=== PATIENT | male | born 1980 | race Caucasian/White ===

== ENCOUNTER 2020-10-12 21:01 | Inpatient (IN) | payer SELFPAY ==
[2020-10-12 21:48] LABS: Basophils % (Auto) 0.2 % (0.0-1.8); Eosinophils % (Auto) 0.2 % (0.0-4.3); Hematocrit 43.6 % (35.5-45.6); Hemoglobin 15.3 gm/dl (11.8-15.2); Lymphocytes % (Auto) 6.1 % (13.4-35.0); Mean Corpuscular HGB Conc 35 % (32-34); Mean Corpuscular Volume 84 fl (84-94); Monocytes # (Auto) 0.8 K/mm3 (0.0-0.8); Monocytes % (Auto) 4.7 % (0.0-7.3); Platelet Count 229 K/mm3 (140-440); Red Blood Count 5.19 M/mm3 (3.65-5.03); Red Cell Distribution Width 13.3 % (13.2-15.2)
[2020-10-12 22:03] LABS: Alanine Aminotransferase 23 units/L (7-56); Albumin 4.4 g/dL (3.9-5); Blood Urea Nitrogen 17 mg/dL (9-20); Calcium 8.9 mg/dL (8.4-10.2); Hemolysis Index 10
[2020-10-12 22:15] LABS: BUN/Creatinine Ratio 24
[2020-10-12] MEDS ORDERED: FAMOTIDINE 20 MG/2 ML INJ IV ONE (22:30)
[2020-10-12] MEDS ORDERED: SODIUM CHLORIDE 0.9% 1000 ML 1,000 ML IV ONE (22:30)
[2020-10-12] MEDS ORDERED: MORPHINE 4 MG/1 ML INJ IV ONE (22:30)
[2020-10-12] MEDS ORDERED: ONDANSETRON 4 MG/2 ML INJ IV ONE (22:30)
--- NOTE | 2020-10-12 23:25 | Cat Scan Report ---
CT ABDOMEN AND PELVIS WITH CONTRAST INDICATION: Abdominal pain CONTRAST: 100 cc Omnipaque 300 IV COMPARISON: None available. All CT scans at this location are performed using CT dose reduction for ALARA by means of automated e xposure control. FINDINGS: A tiny noncalcified nodule versus scar posterior laterally in the left lower lobe measuring 3 mm is of clinical significance. Lung bases otherwise are clear. No pneumoperitoneum is seen. Gallbladder and bile ducts appear within normal limits. No masses are se en. No urinary obstructive changes are noted. No evidence of bowel obstruction is seen. Appearance of portions of the descending and sigmoid colon probably relates to lack of distention. High density ma terial is seen in the right colon as could be seen with some laxatives. What appears to be the appendix is dilated to 11 mm. I do not see significant wall thickening. No def inite inflammation is seen in the fat around the appendix or the appendix itself. No appendicolith is identified. At the base of the cecum at the junction with the appendix there is a question of a 16 m m soft tissue lobular mass. Possibly this is stool but it is outlined by material in the colon and castillo s a concerning appearance. Terminal ileum is best seen on coronal images and appears within normal li mits. IMPRESSION: Apparent dilated appendix though without definite wall thickening or inflammation. I conc erned that there is a mass in the cecum at the appendiceal junction and this could be a mucocele of t he appendix related to obstructive change from a mass lesion. I favor this over acute appendicitis an d see no inflammatory change in this area. No evidence of bowel obstruction is noted. No perforation or abscess is seen. Signer Name: Yonas Chaudhry MD Signed: 10/12/2020 11:20 PM Workstation Name: [id number]
[2020-10-12] MEDS ORDERED: PIPERACIL/TAZOBACTA 4.5/NS 100 4.5 GM/100 ML VIAL IV ONE (23:58)
[2020-10-12] MEDS ORDERED: HYDROmorphone 1 MG/1 ML INJ IV ONE (23:58)
[2020-10-13 00:02] LABS: Bilirubin,Urine NEG (Negative); Blood,Urine NEG (Negative); Color,Urine Yellow (Yellow); Mucus,Urine FEW /HPF; Protein,Urine <15 mg/dL mg/dL (Negative)
--- NOTE | 2020-10-13 00:12 | Emergency Department Report ---
ED Abdominal Pain HPI - General Chief Complaint: Abdominal Pain Stated Complaint: ABDOMINAL PAIN Time Seen by Provider: 10/12/20 23:45 Source: patient Mode of arrival: Ambulatory Limitations: No Limitations - History of Present Illness Initial Comments: cc: abdominal pain HPI: This is a healthy 39-year-old male without significant past medical history presents with right lower quadrant abdominal pain. Pain began at the navel. Pain then moved to the right lower quadrant of the past day. He has poor appetite. He also has nausea vomiting. He denies fever chills. No history of surgery. Pain is worse with inspiration and movement. Pain is sharp in nature. 10 out of 10. Pain did improve with morphine provided in the emergency department. 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 MD Complaint: abdominal pain -: Gradual, days(s) (1 day) Location: periumbilical, RLQ Radiation: none Migration to: no migration Severity scale (0 -10): 10 Quality: sharp Consistency: constant Improves With: other (still position) Worsens With: movement Associated Symptoms: nausea, vomiting - Related Data Allergies Allergy/AdvReac Type Severity Reaction Status Date / Time No Known Allergies Allergy Verified 10/12/20 22:32 ED Review of Systems ROS: Stated complaint: ABDOMINAL PAIN Other details as noted in HPI Comment: All other systems reviewed and negative Constitutional: denies: chills, fever, malaise Respiratory: denies: cough, shortness of breath Gastrointestinal: abdominal pain, nausea, vomiting ED Past Medical Hx - Past Medical History Previous Medical History?: No - Surgical History Past Surgical History?: No - Social History Smoking Status: Never Smoker Substance Use Type: None ED Physical Exam - General Limitations: No Limitations General appearance: alert, in no apparent distress, other (Nontoxic but in severe pain) - Head Head exam: Present: atraumatic, normocephalic - Eye Eye exam: Present: normal appearance - ENT ENT exam: Present: mucous membranes moist - Neck Neck exam: Present: normal inspection, full ROM - Respiratory Respiratory exam: Present: normal lung sounds bilaterally. Absent: respiratory distress, wheezes, rales, rhonchi - Cardiovascular Cardiovascular Exam: Present: regular rate, normal rhythm, normal heart sounds. Absent: systolic murmur, diastolic murmur, rubs, gallop - GI/Abdominal GI/Abdominal exam: Present: soft, tenderness, guarding, rebound. Absent: distended - Rectal Rectal exam: Present: deferred - Extremities Exam Extremities exam: Present: normal inspection - Back Exam Back exam: Present: normal inspection - Neurological Exam Neurological exam: Present: alert, oriented X3 - Psychiatric Psychiatric exam: Present: normal affect, normal mood - Skin Skin exam: Present: warm, dry, intact, pallor. Absent: rash ED Course Vital Signs 10/12/20 21:25 Temperature 98.7 F Pulse Rate 62 Respiratory 16 Rate Blood Pressure 125/62 [Left] O2 Sat by Pulse 99 Oximetry ED Medical Decision Making - Lab Data Result diagrams: 10/12/20 21:41 10/12/20 21:41 Laboratory Results - last 24 hr 10/12/20 10/12/20 10/12/20 21:41 21:41 21:41 WBC 16.2 H RBC 5.19 H Hgb 15.3 H Hct 43.6 MCV 84 MCH 30 MCHC 35 H RDW 13.3 Plt Count 229 Lymph % (Auto) 6.1 L [place] % (Auto) 4.7 Eos % (Auto) 0.2 Baso % (Auto) 0.2 Lymph # (Auto) 1.0 L [place] # (Auto) 0.8 Eos # (Auto) 0.0 Baso # (Auto) 0.0 Seg Neutrophils % 88.8 H Seg Neutrophils # 14.4 H Sodium 137 Potassium 4.0 Chloride 100.0 Carbon Dioxide 24 Anion Gap 17 BUN 17 Creatinine 0.7 L Estimated GFR > 60 BUN/Creatinine Ratio 24 Glucose 135 H Calcium 8.9 Total Bilirubin 0.80 AST 27 ALT 23 Alkaline Phosphatase 86 Total Protein 8.2 Albumin 4.4 Albumin/Globulin Ratio 1.2 Lipase 22 Urine Color Urine Turbidity Urine pH Ur Specific [place] Urine Protein Urine Glucose (UA) Urine Ketones Urine Blood Urine Nitrite Urine Bilirubin Urine Urobilinogen Ur Leukocyte Esterase Urine WBC (Auto) Urine RBC (Auto) Urine Mucus 10/12/20 Unknown WBC RBC Hgb Hct MCV MCH MCHC RDW Plt Count Lymph % (Auto) [place] % (Auto) Eos % (Auto) Baso % (Auto) Lymph # (Auto) [place] # (Auto) Eos # (Auto) Baso # (Auto) Seg Neutrophils % Seg Neutrophils # Sodium Potassium Chloride Carbon Dioxide Anion Gap BUN Creatinine Estimated GFR BUN/Creatinine Ratio Glucose Calcium Total Bilirubin AST ALT Alkaline Phosphatase Total Protein Albumin Albumin/Globulin Ratio Lipase Urine Color Yellow Urine Turbidity Clear Urine pH 7.0 Ur Specific [place] 1.036 H Urine Protein <15 mg/dl Urine Glucose (UA) Neg Urine Ketones 80 Urine Blood Neg Urine Nitrite Neg Urine Bilirubin Neg Urine Urobilinogen 2.0 Ur Leukocyte Esterase Neg Urine WBC (Auto) 1.0 Urine RBC (Auto) 4.0 Urine Mucus Few - Radiology Data Radiology results: report reviewed Patient Name: JENNIFER CONCEPCION Gender: Male Date of : 1980 Home Phone: Referring Provider: KIM BANKS Organization: [facility] Accession Number: [id number] Requested Date: October 12, 2020 21:33 Report Status: Final Requested Procedure: 1 Procedure Description: CT abdomen pelvis w con Modality: CT Findings Reporting MD: Yonas Chaudhry Dictation Time: October 12, 2020 22:20 Marketing Development 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 All CT scans at this location are performed using CT dose reduction for Ingeniatrics by means of automated exposure control. FINDINGS: A tiny noncalcified nodule versus scar posterior laterally in the left lower lobe measuring 3 mm is of clinical significance. Lung bases otherwise are clear. No pneumoperitoneum is seen. Gallbladder and bile ducts appear within normal limits. No masses are seen. No urinary obstructive changes are noted. No evidence of bowel obstruction is seen. Appearance of portions of the descending and sigmoid colon probably relates to lack of distention. High density material is seen in the right colon as could be seen with some laxatives. What appears to be the appendix is dilated to 11 mm. I do not see significant wall thickening. No definite inflammation is seen in the fat around the appendix or the appendix itself. No appendicolith is iden tified. At the base of the cecum at the junction with the appendix there is a question of a 16 mm soft tissue lobular mass. Possibly this is stool but it is outlined by material in the colon and has a concerning appearance. Terminal ileum is best seen on coronal images and appears within normal limits. IMPRESSION: Apparent dilated appendix though without definite wall thickening or inflammation. I concerned that there is a mass in the cecum at the appendiceal junction and this could be a mucocele of the appendix related to obstructive change from a mass lesion. I favor this over acute appendicitis and see no inflammatory change in this area. No evidence of bowel obstruction is noted. No perforation or abscess is seen. Signer Name: Yonas Chaudhry MD Signed: 10/12/2020 10:20 PM Workstation Name: [id number] - Medical Decision Making 1. Acute appendicitis: Patient has elevated white count on CBC as well as convincing abdominal exam. Clinically patient presents with signs and symptoms of appendicitis. IV Zosyn, IV analgesia, IV antibiotics, n.p.o. status and IV fluid therapy initiated emergency department. 2. Possible cecal mass: Cecal mass at the appendiceal junction is suspected according to radiology impression. Appendix is dilated on CT scan however there is no associated inflammatory changes. I have made general surgeon Dr. De aware of these findings. He will make further treatment recommendations after evaluating the patient [id number]. Patient is admitted to the hospital service in stable condition. Critical care attestation.: If time is entered above; I have spent that time in minutes in the direct care of this critically ill patient, excluding procedure time. ED Disposition Clinical Impression: Acute appendicitis, Cecum mass Disposition: [id number] OP ADMIT IP TO THIS HOSP Is pt being admited?: Yes Does the pt Need Aspirin: No Condition: Stable
[2020-10-13] MEDS ORDERED: ALBUTEROL 2.5 MG/3 ML NEBU IH PRN (00:41)
[2020-10-13] MEDS ORDERED: ACETAMINOPHEN 325 MG TAB PO PRN (00:41)
[2020-10-13] MEDS ORDERED: ONDANSETRON 4 MG/2 ML INJ IV PRN ×2 (00:41→13:10)
[2020-10-13] MEDS ORDERED: hydrALAZINE 20 MG/1 ML INJ IV PRN (00:42)
--- NOTE | 2020-10-13 00:47 | History and Physical Report ---
History of Present Illness Date of examination: 10/13/20 Date of admission: 10/13/20 Chief complaint: Abdominal pain History of present illness: 39-year-old male without significant past medical history presents with right lower quadrant abdominal pain 10/10 started at [place] radiating towards the right lower quadrant for 1 day. he has poor appetite. He also has nausea vomiting. He denies fever chills. No history of surgery. Pain is worse with inspiration and movement. Pain is sharp in nature. Pain did improve with morphine provided in the emergency department. CT scan of the abdomen showed apparent dilated appendix though without definite wall thickening or inflammation. I concerned that there is a mass in the cecum at the appendiceal junction and this could be a mucocele of the appendix related to the obstructive change from a mass lesion I favor this over acute appendicitis and see no inflammation change in the area. No evidence of bowel obstruction is noted no perforation or abscess is seen Medications and Allergies Allergies Allergy/AdvReac Type Severity Reaction Status Date / Time No Known Allergies Allergy Verified 10/12/20 22:32 Active Meds: Active Medications Acetaminophen (Acetaminophen 325 Mg Tab) 650 mg PO Q4H PRN PRN Reason: Pain MILD(1-3)/Fever >100.5/LEGGETT Albuterol (Albuterol 2.5 Mg/3 Ml Nebu) 2.5 mg IH Q3HRT PRN PRN Reason: Shortness Of Breath Albuterol/Ipratropium (Ipratropium/Albuterol Sulfate 3 Ml Ampul.Neb) 1 ampul IH Q6HRT MADI Famotidine (Famotidine 20 Mg/2 Ml Inj) 20 mg IV BID MADI Heparin Sodium (Porcine) (Heparin 5,000 Unit/1 Ml Vial) 5,000 unit SUB-Q Q8HR MADI Hydralazine HCl (Hydralazine 20 Mg/1 Ml Inj) 10 mg IV Q6H PRN PRN Reason: htn Dextrose/Sodium Chloride (D5/0.45ns) 1,000 mls @ 100 mls/hr IV DIRECT MADI Piperacillin Sod/Tazobactam Sod (Zosyn/Ns 4.5gm/100ml) 4.5 gm in 100 mls @ 200 mls/hr IV Q8H AMDI; Protocol Morphine Sulfate (Morphine 2 Mg/1 Ml Inj) 2 mg IV Q4H PRN PRN Reason: Pain, Moderate (4-6) Ondansetron HCl (Ondansetron 4 Mg/2 Ml Inj) 4 mg IV Q8H PRN PRN Reason: Nausea And Vomiting Sodium Chloride (Sodium Chloride 0.9% 10 Ml Flush Syringe) 10 ml IV BID MADI Sodium Chloride (Sodium Chloride 0.9% 10 Ml Flush Syringe) 10 ml IV PRN PRN PRN Reason: LINE FLUSH Review of Systems Gastrointestinal: abdominal pain, nausea, vomiting Exam - Constitutional Vitals: Temp Pulse Resp BP Pulse Ox 98.7 F 78 19 131/69 99 10/12/20 21:25 10/13/20 00:15 10/13/20 00:18 10/13/20 00:15 10/13/20 00:15 General appearance: Present: no acute distress, well-nourished - EENT Eyes: Present: PERRL ENT: hearing intact, clear oral mucosa - Neck Neck: Present: supple, normal ROM - Respiratory Respiratory effort: normal Respiratory: bilateral: CTA - Cardiovascular Heart Sounds: Present: S1 & S2. Absent: rub, click - Extremities Extremities: pulses symmetrical, No edema Peripheral Pulses: within normal limits - Abdominal General gastrointestinal: Present: soft, tender, non-distended, normal bowel sounds Male genitourinary: Present: normal - Integumentary Integumentary: Present: clear, warm, dry - Musculoskeletal Musculoskeletal: gait normal, strength equal bilaterally - Psychiatric Psychiatric: appropriate mood/affect, intact judgment & insight - Neurologic Neurologic: CNII-XII intact, moves all extremities Results - Labs CBC & Chem 7: 10/12/20 21:41 10/12/20 21:41 Labs: Laboratory Last Values WBC 16.2 K/mm3 (4.5-11.0) H 10/12/20 21:41 RBC 5.19 M/mm3 (3.65-5.03) H 10/12/20 21:41 Hgb 15.3 gm/dl (11.8-15.2) H 10/12/20 21:41 Hct 43.6 % (35.5-45.6) 10/12/20 21:41 MCV 84 fl (84-94) 10/12/20 21:41 MCH 30 pg (28-32) 10/12/20 21:41 MCHC 35 % (32-34) H 10/12/20 21:41 RDW 13.3 % (13.2-15.2) 10/12/20 21:41 Plt Count 229 K/mm3 (140-440) 10/12/20 21:41 Lymph % (Auto) 6.1 % (13.4-35.0) L 10/12/20 21:41 [place] % (Auto) 4.7 % (0.0-7.3) 10/12/20 21:41 Eos % (Auto) 0.2 % (0.0-4.3) 10/12/20 21:41 Baso % (Auto) 0.2 % (0.0-1.8) 10/12/20 21:41 Lymph # (Auto) 1.0 K/mm3 (1.2-5.4) L 10/12/20 21:41 [place] # (Auto) 0.8 K/mm3 (0.0-0.8) 10/12/20 21:41 Eos # (Auto) 0.0 K/mm3 (0.0-0.4) 10/12/20 21:41 Baso # (Auto) 0.0 K/mm3 (0.0-0.1) 10/12/20 21:41 Seg Neutrophils % 88.8 % (40.0-70.0) H 10/12/20 21:41 Seg Neutrophils # 14.4 K/mm3 (1.8-7.7) H 10/12/20 21:41 Sodium 137 mmol/L (137-145) 10/12/20 21:41 Potassium 4.0 mmol/L (3.6-5.0) 10/12/20 21:41 Chloride 100.0 mmol/L (98-107) 10/12/20 21:41 Carbon Dioxide 24 mmol/L (22-30) 10/12/20 21:41 Anion Gap 17 mmol/L 10/12/20 21:41 BUN 17 mg/dL (9-20) 10/12/20 21:41 Creatinine 0.7 mg/dL (0.8-1.3) L 10/12/20 21:41 Estimated GFR > 60 ml/min 10/12/20 21:41 BUN/Creatinine Ratio 24 % 10/12/20 21:41 Glucose 135 mg/dL (75-100) H 10/12/20 21:41 Calcium 8.9 mg/dL (8.4-10.2) 10/12/20 21:41 Total Bilirubin 0.80 mg/dL (0.1-1.2) 10/12/20 21:41 AST 27 units/L (5-40) 10/12/20 21:41 ALT 23 units/L (7-56) 10/12/20 21:41 Alkaline Phosphatase 86 units/L (35-129) 10/12/20 21:41 Total Protein 8.2 g/dL (6.3-8.2) 10/12/20 21:41 Albumin 4.4 g/dL (3.9-5) 10/12/20 21:41 Albumin/Globulin Ratio 1.2 % 10/12/20 21:41 Lipase 22 units/L (13-60) 10/12/20 21:41 Urine Color Yellow (Yellow) 10/12/20 Unknown Urine Turbidity Clear (Clear) 10/12/20 Unknown Urine pH 7.0 (5.0-7.0) 10/12/20 Unknown Ur Specific [place] 1.036 (1.003-1.030) H 10/12/20 Unknown Urine Protein <15 mg/dl mg/dL (Negative) 10/12/20 Unknown Urine Glucose (UA) Neg mg/dL (Negative) 10/12/20 Unknown Urine Ketones 80 mg/dL (Negative) 10/12/20 Unknown Urine Blood Neg (Negative) 10/12/20 Unknown Urine Nitrite Neg (Negative) 10/12/20 Unknown Urine Bilirubin Neg (Negative) 10/12/20 Unknown Urine Urobilinogen 2.0 mg/dL (<2.0) 10/12/20 Unknown Ur Leukocyte Esterase Neg (Negative) 10/12/20 Unknown Urine WBC (Auto) 1.0 /HPF (0.0-6.0) 10/12/20 Unknown Urine RBC (Auto) 4.0 /HPF (0.0-6.0) 10/12/20 Unknown Urine Mucus Few /HPF 10/12/20 Unknown - Imaging and Cardiology CT scan - abdomen: report reviewed Assessment and Plan VTE prophylaxis?: Chemical Plan of care discussed with patient/family: Yes - Patient Problems (1) Acute appendicitis Status: Acute Plan to address problem: Admit the patient to the medical floor. N.p.o. D5 half-normal saline at the rate of 100 cc/h. Pepcid 20 mg IV every 12 hours. Zosyn 4.5 g IV every 8 hours. Will consult surgery to see the patient (2) Abdominal pain Status: Acute Plan to address problem: Tylenol 650 mg p.o. every 6 as needed. Morphine 2 mg IV every 4 hours as needed. Pepcid 20 mg IV every 12 hours (3) Cecum mass Status: Acute Plan to address problem: N.p.o. D5 half-normal saline at the rate of 100 cc/h. Pepcid 20 mg IV every 12 hours. Zosyn 4.5 g IV every 8 hours. Will consult surgery to see the patient (4) Leukocytosis Status: Acute Plan to address problem: Zosyn 4.5 g IV every 8 hours. We will do the blood culture. Recheck CBC in the morning (5) DVT prophylaxis Status: Acute Plan to address problem: Heparin 5000 units subcu every 8 hours for DVT prophylaxis. Pepcid 20 mg IV every 12 hours for GI prophylaxis. Patient is a full code
[2020-10-13] MEDS ORDERED: IPRATROPIUM/ALBUTEROL SULFATE 3 ML AMPUL.NEB IH SCH (02:00)
[2020-10-13] MEDS: D5W/0.45% NACL 1,000 ML IV SCH ×2 (02:34→17:27)
[2020-10-13] MEDS: HEPARIN 5,000 UNIT/1 ML VIAL SUB-Q SCH ×3 (06:34→21:52)
[2020-10-13] MEDS: FAMOTIDINE 20 MG/2 ML INJ IV SCH ×2 (09:15→21:51)
[2020-10-13] MEDS: PIPERACIL/TAZOBACTA 4.5/NS 100 4.5 GM/100 ML VIAL IV SCH ×3 (09:15→23:51)
--- NOTE | 2020-10-13 09:43 | Consultation ---
History of Present Illness Consult date: 10/13/20 Reason for consult: abdominal pain - History of present illness History of present illness: 39 yo male with 24 hour h/o RLQ pain, nausea and vomiting. No fever, chills or hematochezia. Medications and Allergies Allergies Allergy/AdvReac Type Severity Reaction Status Date / Time No Known Allergies Allergy Verified 10/12/20 22:32 Active Meds: Active Medications Acetaminophen (Acetaminophen 325 Mg Tab) 650 mg PO Q4H PRN PRN Reason: Pain MILD(1-3)/Fever >100.5/LEGGETT Albuterol (Albuterol 2.5 Mg/3 Ml Nebu) 2.5 mg IH Q3HRT PRN PRN Reason: Shortness Of Breath Famotidine (Famotidine 20 Mg/2 Ml Inj) 20 mg IV BID [facility] Last Admin: 10/13/20 09:15 Dose: 20 mg Documented by: Heparin Sodium (Porcine) (Heparin 5,000 Unit/1 Ml Vial) 5,000 unit SUB-Q Q8HR [facility] Last Admin: 10/13/20 06:34 Dose: 5,000 unit Documented by: Hydralazine HCl (Hydralazine 20 Mg/1 Ml Inj) 10 mg IV Q6H PRN PRN Reason: htn Dextrose/Sodium Chloride (D5/0.45ns) 1,000 mls @ 100 mls/hr IV DIRECT [facility] Last Admin: 10/13/20 02:34 Dose: 100 mls/hr Documented by: Piperacillin Sod/Tazobactam Sod (Zosyn/Ns 4.5gm/100ml) 4.5 gm in 100 mls @ 200 mls/hr IV Q8H [facility]; Protocol Last Admin: 10/13/20 09:15 Dose: 200 mls/hr Documented by: Morphine Sulfate (Morphine 2 Mg/1 Ml Inj) 2 mg IV Q4H PRN PRN Reason: Pain, Moderate (4-6) Ondansetron HCl (Ondansetron 4 Mg/2 Ml Inj) 4 mg IV Q8H PRN PRN Reason: Nausea And Vomiting Sodium Chloride (Sodium Chloride 0.9% 10 Ml Flush Syringe) 10 ml IV BID [facility] Last Admin: 10/13/20 09:15 Dose: 10 ml Documented by: Sodium Chloride (Sodium Chloride 0.9% 10 Ml Flush Syringe) 10 ml IV PRN PRN PRN Reason: LINE FLUSH Last Admin: 10/13/20 02:35 Dose: 10 ml Documented by: Review of Systems All systems: negative (none) Exam Vital Signs Temp Pulse Resp BP Pulse Ox 98.7 F 62 16 125/62 99 10/12/20 21:25 10/12/20 21:25 10/12/20 21:25 10/12/20 21:25 10/12/20 21:25 - General physical appearance Positive: well developed, well nourished, no distress - Eyes Positive: PERRL, normal occular movement - ENT Positive: normal pinna, normal nares, normal mucosa, no hearing loss, no congestion - Neck Positive: no masses, no bruits, trachea midline, no venous distension - Respiratory Positive: normal expansion, normal respiratory effort, clear to auscultation - Cardiovascular Rhythm: regular Heart Sounds: Present: S1 & S2. Absent: rub, click - Extremities Extremities: no ischemia, pulses symmetrical, No edema - Breasts Breasts: normal, no mass, no skin changes - Abdomen Abdomen: Present: soft, bowel sounds normal, other (TTP over McBurney's point with early guarding.). Absent: distended Hernia: none - Genitourinary Male Genitourinary: normal Female Genitourinary: normal - Integumentary no rash, no growths, no abnormal pigmentation - Neurologic Neurologic: alert and oriented to time, place and person, motor strength and sensation are grossly intact - Musculoskeletal normal gait, normal posture - Psychiatric Psychiatric: appropriate mood/affect, intact judgment & insight Results - Labs 10/12/20 21:41 10/12/20 21:41 Abnormal lab results 10/12/20 10/12/20 10/12/20 Range/Units 21:41 21:41 Unknown WBC 16.2 H (4.5-11.0) K/mm3 RBC 5.19 H (3.65-5.03) M/mm3 Hgb 15.3 H (11.8-15.2) gm/dl MCHC 35 H (32-34) % Lymph % (Auto) 6.1 L (13.4-35.0) % Lymph # (Auto) 1.0 L (1.2-5.4) K/mm3 Seg Neutrophils % 88.8 H (40.0-70.0) % Seg Neutrophils # 14.4 H (1.8-7.7) K/mm3 Creatinine 0.7 L (0.8-1.3) mg/dL Glucose 135 H (75-100) mg/dL Ur Specific [place] 1.036 H (1.003-1.030) Diabetes panel 10/12/20 Range/Units 21:41 Sodium 137 (137-145) mmol/L Potassium 4.0 (3.6-5.0) mmol/L Chloride 100.0 (98-107) mmol/L Carbon Dioxide 24 (22-30) mmol/L BUN 17 (9-20) mg/dL Creatinine 0.7 L (0.8-1.3) mg/dL Glucose 135 H (75-100) mg/dL Calcium 8.9 (8.4-10.2) mg/dL AST 27 (5-40) units/L ALT 23 (7-56) units/L Alkaline Phosphatase 86 (35-129) units/L Total Protein 8.2 (6.3-8.2) g/dL Albumin 4.4 (3.9-5) g/dL Calcium panel 10/12/20 Range/Units 21:41 Calcium 8.9 (8.4-10.2) mg/dL Albumin 4.4 (3.9-5) g/dL Pituitary panel 10/12/20 Range/Units 21:41 Sodium 137 (137-145) mmol/L Potassium 4.0 (3.6-5.0) mmol/L Chloride 100.0 (98-107) mmol/L Carbon Dioxide 24 (22-30) mmol/L BUN 17 (9-20) mg/dL Creatinine 0.7 L (0.8-1.3) mg/dL Glucose 135 H (75-100) mg/dL Calcium 8.9 (8.4-10.2) mg/dL Adrenal panel 10/12/20 Range/Units 21:41 Sodium 137 (137-145) mmol/L Potassium 4.0 (3.6-5.0) mmol/L Chloride 100.0 (98-107) mmol/L Carbon Dioxide 24 (22-30) mmol/L BUN 17 (9-20) mg/dL Creatinine 0.7 L (0.8-1.3) mg/dL Glucose 135 H (75-100) mg/dL Calcium 8.9 (8.4-10.2) mg/dL Total Bilirubin 0.80 (0.1-1.2) mg/dL AST 27 (5-40) units/L ALT 23 (7-56) units/L Alkaline Phosphatase 86 (35-129) units/L Total Protein 8.2 (6.3-8.2) g/dL Albumin 4.4 (3.9-5) g/dL - Imaging CT scan - abdomen: report reviewed CT scan - pelvis: report reviewed Assessment and Plan - Patient Problems (1) Mucocele of appendix Current Visit: Yes Status: Acute Plan to address problem: 1) Repeat CBC and CMP 2) Probable laparoscopic cecectomy today.
--- NOTE | 2020-10-13 10:52 | Progress Note ---
Assessment and Plan Assessment and plan: -- Acute appendicitis/mucocele of the appendix Status: Acute , Plan to address problem: Continue n.p.o. status, IV fluids and supportive care Surgery evaluation noted and appreciated Possible surgical procedure today -- Abdominal pain Status: Acute Plan to address problem: Pain medications, IV Protonix -- Cecum mass[on CT scan] Status: Acute Plan to address problem: Surgery evaluation noted and appreciated, Continue IV fluids, n.p.o., IV antibiotics Surgery scheduled for cecectomy today -- Leukocytosis Status: Acute Plan to address problem: Zosyn 4.5 g IV every 8 hours. We will do the blood culture. -- DVT prophylaxis Status: Acute Plan to address problem: We will hold Heparin 5000 units subcu Possible surgical procedure today SCD We will closely monitor the patient and adjust the management as needed Follow surgical procedure, postop care per surgery Plan of care discussed with the patient and her nurse nurse History Interval history: I have seen and examined the patient at the bedside this morning Patient's chart and medications reviewed Patient complains of right lower quadrant pain Surgery evaluated the patient Scheduled for surgical procedure today Vital signs noted Hospitalist Physical - Constitutional Vitals: Temp Pulse Resp BP Pulse Ox 98.7 F 80 18 110/54 99 10/12/20 21:25 10/13/20 01:45 10/13/20 01:45 10/13/20 01:45 10/13/20 01:45 General appearance: Present: no acute distress, well-nourished - EENT Eyes: Present: PERRL, EOM intact - Neck Neck: Present: supple, normal ROM - Respiratory Respiratory effort: normal Respiratory: bilateral: diminished, negative: rales, rhonchi, wheezing - Cardiovascular Rhythm: regular Heart Sounds: Present: S1 & S2 - Extremities Extremities: no ischemia, No edema - Abdominal General gastrointestinal: soft, tender (Right lower quadrant, no guarding no rigidity), normal bowel sounds - Integumentary Integumentary: Present: clear - Psychiatric Psychiatric: appropriate mood/affect, cooperative - Neurologic Neurologic: CNII-XII intact, moves all extremities Results - Labs CBC & Chem 7: 10/12/20 21:41 10/12/20 21:41 Labs: Laboratory Last Values WBC 16.2 K/mm3 (4.5-11.0) H 10/12/20 21:41 RBC 5.19 M/mm3 (3.65-5.03) H 10/12/20 21:41 Hgb 15.3 gm/dl (11.8-15.2) H 10/12/20 21:41 Hct 43.6 % (35.5-45.6) 10/12/20 21:41 MCV 84 fl (84-94) 10/12/20 21:41 MCH 30 pg (28-32) 10/12/20 21:41 MCHC 35 % (32-34) H 10/12/20 21:41 RDW 13.3 % (13.2-15.2) 10/12/20 21:41 Plt Count 229 K/mm3 (140-440) 10/12/20 21:41 Lymph % (Auto) 6.1 % (13.4-35.0) L 10/12/20 21:41 [place] % (Auto) 4.7 % (0.0-7.3) 10/12/20 21:41 Eos % (Auto) 0.2 % (0.0-4.3) 10/12/20 21:41 Baso % (Auto) 0.2 % (0.0-1.8) 10/12/20 21:41 Lymph # (Auto) 1.0 K/mm3 (1.2-5.4) L 10/12/20 21:41 [place] # (Auto) 0.8 K/mm3 (0.0-0.8) 10/12/20 21:41 Eos # (Auto) 0.0 K/mm3 (0.0-0.4) 10/12/20 21:41 Baso # (Auto) 0.0 K/mm3 (0.0-0.1) 10/12/20 21:41 Seg Neutrophils % 88.8 % (40.0-70.0) H 10/12/20 21:41 Seg Neutrophils # 14.4 K/mm3 (1.8-7.7) H 10/12/20 21:41 Sodium 137 mmol/L (137-145) 10/12/20 21:41 Potassium 4.0 mmol/L (3.6-5.0) 10/12/20 21:41 Chloride 100.0 mmol/L (98-107) 10/12/20 21:41 Carbon Dioxide 24 mmol/L (22-30) 10/12/20 21:41 Anion Gap 17 mmol/L 10/12/20 21:41 BUN 17 mg/dL (9-20) 10/12/20 21:41 Creatinine 0.7 mg/dL (0.8-1.3) L 10/12/20 21:41 Estimated GFR > 60 ml/min 10/12/20 21:41 BUN/Creatinine Ratio 24 % 10/12/20 21:41 Glucose 135 mg/dL (75-100) H 10/12/20 21:41 Calcium 8.9 mg/dL (8.4-10.2) 10/12/20 21:41 Total Bilirubin 0.80 mg/dL (0.1-1.2) 10/12/20 21:41 AST 27 units/L (5-40) 10/12/20 21:41 ALT 23 units/L (7-56) 10/12/20 21:41 Alkaline Phosphatase 86 units/L (35-129) 10/12/20 21:41 Total Protein 8.2 g/dL (6.3-8.2) 10/12/20 21:41 Albumin 4.4 g/dL (3.9-5) 10/12/20 21:41 Albumin/Globulin Ratio 1.2 % 10/12/20 21:41 Lipase 22 units/L (13-60) 10/12/20 21:41 Urine Color Yellow (Yellow) 10/12/20 Unknown Urine Turbidity Clear (Clear) 10/12/20 Unknown Urine pH 7.0 (5.0-7.0) 10/12/20 Unknown Ur Specific [place] 1.036 (1.003-1.030) H 10/12/20 Unknown Urine Protein <15 mg/dl mg/dL (Negative) 10/12/20 Unknown Urine Glucose (UA) Neg mg/dL (Negative) 10/12/20 Unknown Urine Ketones 80 mg/dL (Negative) 10/12/20 Unknown Urine Blood Neg (Negative) 10/12/20 Unknown Urine Nitrite Neg (Negative) 10/12/20 Unknown Urine Bilirubin Neg (Negative) 10/12/20 Unknown Urine Urobilinogen 2.0 mg/dL (<2.0) 10/12/20 Unknown Ur Leukocyte Esterase Neg (Negative) 10/12/20 Unknown Urine WBC (Auto) 1.0 /HPF (0.0-6.0) 10/12/20 Unknown Urine RBC (Auto) 4.0 /HPF (0.0-6.0) 10/12/20 Unknown Urine Mucus Few /HPF 10/12/20 Unknown Ambrocio/IV: Voiding Method Toilet Active Medications - Current Medications Current Medications: Generic Name Dose Route Start Last Admin Trade Name Freq PRN Reason Stop Dose Admin Acetaminophen 650 mg 10/13/20 00:41 Acetaminophen 325 Mg Tab PO Q4H PRN Pain MILD(1-3)/Fever >100.5/LEGGETT Albuterol 2.5 mg 10/13/20 00:41 Albuterol 2.5 Mg/3 Ml Nebu IH Q3HRT PRN Shortness Of Breath Famotidine 20 mg 10/13/20 10:00 10/13/20 09:15 Famotidine 20 Mg/2 Ml Inj IV 20 mg BID MADI Administration Heparin Sodium (Porcine) 5,000 unit 10/13/20 06:00 10/13/20 06:34 Heparin 5,000 Unit/1 Ml Vial SUB-Q 5,000 unit Q8HR MADI Administration Hydralazine HCl 10 mg 10/13/20 00:42 Hydralazine 20 Mg/1 Ml Inj IV Q6H PRN htn Dextrose/Sodium Chloride 1,000 mls @ 100 mls/hr 10/13/20 01:00 10/13/20 02:34 D5/0.45ns IV 100 mls/hr DIRECT MADI Administration Piperacillin Sod/Tazobactam Sod 4.5 gm in 100 mls @ 200 mls/hr 10/13/20 08:00 10/13/20 09:15 Zosyn/Ns 4.5gm/100ml IV 200 mls/hr Q8H MADI Administration Protocol Morphine Sulfate 2 mg 10/13/20 00:41 Morphine 2 Mg/1 Ml Inj IV Q4H PRN Pain, Moderate (4-6) Ondansetron HCl 4 mg 10/13/20 00:41 Ondansetron 4 Mg/2 Ml Inj IV Q8H PRN Nausea And Vomiting Sodium Chloride 10 ml 10/13/20 10:00 10/13/20 09:15 Sodium Chloride 0.9% 10 Ml Flush Syringe IV 10 ml BID MADI Administration Sodium Chloride 10 ml 10/13/20 00:41 10/13/20 02:35 Sodium Chloride 0.9% 10 Ml Flush Syringe IV 10 ml PRN PRN Administration LINE FLUSH
[2020-10-13] MEDS ORDERED: MIDAZOLAM 2 MG/2 ML INJ IV NR (12:22)
[2020-10-13] MEDS ORDERED: LACTATED RINGERS 1,000 ML IV SCH (12:30)
--- NOTE | 2020-10-13 13:09 | Anesthesia Consultation ---
Anesthesia Consult and Med Hx Date of service: 10/13/20 - Airway Anesthetic Teeth Evaluation: Good ROM Head & Neck: Adequate Mental/Hyoid Distance: Adequate Mallampati Class: Class II Intubation Access Assessment: Probably Good - Pre-Operative Health Status ASA Pre-Surgery Classification: ASA2 Proposed Anesthetic Plan: General - Pulmonary Hx Smoking: Yes (former smoker quit 18yrs ago) Hx Respiratory Symptoms: No - Cardiovascular System Hx Hypertension: No - Central Nervous System CVA: No - Endocrine Hx Renal Disease: No Hx Liver Disease: No Hx Insulin Dependent Diabetes: No Hx Non-Insulin Dependent Diabetes: No Hx Thyroid Disease: No
[2020-10-13] MEDS ORDERED: HYDROmorphone 1 MG/1 ML INJ IV PRN (13:10)
--- NOTE | 2020-10-13 13:10 | Anesthesia Day of Surgery ---
Anesthesia Day of Surgery - Day of Surgery Patient Examined: Yes Patient H&P Reviewed: Yes Patient is NPO: Yes
[2020-10-13] MEDS ORDERED: LIDOCAINE MPF (2%) 20 MG/1 ML VIAL 5 ML ONE (13:32)
[2020-10-13] MEDS ORDERED: dexAMETHasone 20 MG/5 ML VIAL ONE (13:32)
[2020-10-13] MEDS ORDERED: SUCCINYLCHOLINE CHLORIDE 200 MG/10 ML INJ MDV ONE (13:32)
[2020-10-13] MEDS ORDERED: ROCURONIUM 50 MG/5 ML INJ IV ONE (13:32)
[2020-10-13] MEDS ORDERED: propofoL 200 MG/20 ML VIAL IV ONE (13:33)
[2020-10-13] MEDS ORDERED: fentaNYL 100 MCG/2 ML INJ ONE (13:33)
[2020-10-13] MEDS ORDERED: BUPIVACAINE/PF (0.5%) 5 MG/1 ML 10 ML VIAL INFILTRATI ONE ×4 (13:44→14:27)
[2020-10-13] MEDS ORDERED: ePHEDrine SULFATE 50 MG/1 ML INJ ONE (13:58)
[2020-10-13] MEDS ORDERED: GLYCOPYRROLATE 0.4 MG/2 ML INJ ONE (15:24)
[2020-10-13] MEDS ORDERED: LACTATED RINGERS 1,000 ML ONE (15:24)
[2020-10-13] MEDS ORDERED: NEOSTIGMINE 10MG/10 ML INJ MDV ONE (15:24)
--- NOTE | 2020-10-13 16:02 | Procedure Note ---
Date of procedure: 10/13/20 Pre-op diagnosis: Appendiceal mucocele Post-op diagnosis: same (Also, acute appendicitis) Procedure: Laparoscopic cecectomy Description of procedure: Pt was placed supine on the OR table. GETA was administered. Abdomen was prepped and draped. Proposed trocar sites were infiltrated with 8 ml of 0.5% Marcaine. A small infraumbilical incision was made, linea alba incised and the peritoneal cavity carefully entered. A Thanh port was inserted into the peritoneal cavity and pneumoperitoneum established. 5 mm ports were inserted in the midline of the suprapubic area and LLQ under direct vision without incident. Pt was placed head and left side down. Cloudy yellow brown fluid was noted in the pelvis. Appendix was identified and appeared inflamed and edematous. I could not determine if a mass was present in the cecum. Peritoneal fluid was collected and was sent for C&S. Mesoappendix was divided with the Ligasure. Cecum was freed up. Position of the ileo-cecal valve was determined. The cecum and appendix were amputated with an Endo-ROXANNA stapler. Cecum and appendix were placed in an endobag and the endobag removed via the infraumbilical fascial defect. Pneumoperitoneum was re-established. Irrigation fluid used during the procedure was maximally aspirated. The staple line was inspected and was hemostatic. Ileo-cecal valve was again noted and was preserved. The 5 mm ports were removed with no bleeding from the port entry si terell under low pressure. Thanh port was removed and pneumoperitoneum was released. The infraumbilical fascial defect was closed with 2 interrupted sutures of 0-Vicryl. Skin incisions were closed with running subcuticular sutures of 4-0 Monocryl. Skin glue was applied to all incisions. Pt tolerated the procedure well. Pt was extubated in the OR and was taken to PACU in stable condition. Anesthesia: GETA Surgeon: ROSS VILLA Estimated blood loss: minimal Pathology: list (1) Cecum and appendix 2) C&S of cloudy peritoneal fluid) Specimen disposition: to lab Condition: stable Disposition: PACU
[2020-10-13] MEDS: MORPHINE 2 MG/1 ML INJ IV PRN ×2 (17:28→21:52)
--- NOTE | 2020-10-13 18:51 | Post Anesthesia Evaluation ---
- Post Anesthesia Evaluation Patient Participated: Yes Airway Patent: Yes Stable Respiratory Function: Yes Nausea/Vomiting: No Temp > 96.8F: Yes Pain Manageable: Yes Adequeate Hydration: Yes Anesthesia Complications: No
[2020-10-13 20:00] LABS: Hematocrit 39.2 % (35.5-45.6); Hemoglobin 13.7 gm/dl (11.8-15.2); Mean Corpuscular HGB Conc 35 % (32-34); Mean Corpuscular Volume 85 fl (84-94); Platelet Count 181 K/mm3 (140-440); Red Blood Count 4.62 M/mm3 (3.65-5.03); Red Cell Distribution Width 13.8 % (13.2-15.2)
[2020-10-13 20:22] LABS: Alanine Aminotransferase 15 units/L (7-56); Albumin 3.4 g/dL (3.9-5); BUN/Creatinine Ratio 10; Blood Urea Nitrogen 10 mg/dL (9-20); Calcium 8.4 mg/dL (8.4-10.2); Hemolysis Index 16
[2020-10-13 22:05] LABS: Total Cells Counted 100
[2020-10-13 22:06] LABS: RBC Morphology Normal
[2020-10-14] MEDS: D5W/0.45% NACL 1,000 ML IV SCH (05:22)
[2020-10-14] MEDS: HEPARIN 5,000 UNIT/1 ML VIAL SUB-Q SCH (05:22)
[2020-10-14 06:28] LABS: Basophils % (Auto) 0.1 % (0.0-1.8); Hematocrit 38.8 % (35.5-45.6); Hemoglobin 13.7 gm/dl (11.8-15.2); Lymphocytes # (Auto) 0.9 K/mm3 (1.2-5.4); Lymphocytes % (Auto) 10.5 % (13.4-35.0); Mean Corpuscular HGB Conc 35 % (32-34); Mean Corpuscular Volume 85 fl (84-94); Monocytes # (Auto) 0.5 K/mm3 (0.0-0.8); Monocytes % (Auto) 5.9 % (0.0-7.3); Platelet Count 181 K/mm3 (140-440); Red Blood Count 4.58 M/mm3 (3.65-5.03); Red Cell Distribution Width 13.5 % (13.2-15.2)
[2020-10-14 06:39] LABS: Blood Urea Nitrogen 8 mg/dL (9-20); Calcium 8.7 mg/dL (8.4-10.2); Hemolysis Index 6
[2020-10-14 06:40] LABS: BUN/Creatinine Ratio 11
[2020-10-14] MEDS: PIPERACIL/TAZOBACTA 4.5/NS 100 4.5 GM/100 ML VIAL IV SCH (08:00)
--- NOTE | 2020-10-14 08:25 | Progress Note ---
Assessment and Plan Assessment and plan: -- Acute appendicitis/mucocele of the appendix Status: Acute , Plan to address problem: S/P laparoscopic cecectomy. 10/13/2020 Patient tolerated the procedure well, continue postop care Continue n.p.o. status, IV fluids and pain medications Surgery following Increase ambulation as tolerated -- Cecum mass[on CT scan] Status: Acute Plan to address problem: S/P laparoscopic cecectomy. 10/13/2020 Continue postop care per surgery -- Leukocytosis Status: Acute Plan to address problem: Resolved ,Zosyn 4.5 g IV every 8 hours. Follow blood cultures -- DVT prophylaxis Status: Acute Plan to address problem: Lovenox subcu,SCD Ambulate as tolerated Follow surgery recommendations Plan of care discussed with the patient and her nurse nurse 10/14/2020; S/P laparoscopic cecectomy. 10/13/2020 N.p.o. status, IV antibiotics, postop care per surgery Hospitalist Physical - Constitutional Vitals: Temp Pulse Resp BP Pulse Ox 98.5 F 49 L 18 113/56 100 10/14/20 04:18 10/14/20 04:18 10/14/20 04:18 10/14/20 04:18 10/14/20 04:18 General appearance: Present: no acute distress, well-nourished Results - Labs CBC & Chem 7: 10/14/20 05:37 10/14/20 05:37 Labs: Laboratory Last Values WBC 8.5 K/mm3 (4.5-11.0) 10/14/20 05:37 RBC 4.58 M/mm3 (3.65-5.03) 10/14/20 05:37 Hgb 13.7 gm/dl (11.8-15.2) 10/14/20 05:37 Hct 38.8 % (35.5-45.6) 10/14/20 05:37 MCV 85 fl (84-94) 10/14/20 05:37 MCH 30 pg (28-32) 10/14/20 05:37 MCHC 35 % (32-34) H 10/14/20 05:37 RDW 13.5 % (13.2-15.2) 10/14/20 05:37 Plt Count 181 K/mm3 (140-440) 10/14/20 05:37 Lymph % (Auto) 10.5 % (13.4-35.0) L 10/14/20 05:37 [place] % (Auto) 5.9 % (0.0-7.3) 10/14/20 05:37 Eos % (Auto) 0.0 % (0.0-4.3) 10/14/20 05:37 Baso % (Auto) 0.1 % (0.0-1.8) 10/14/20 05:37 Lymph # (Auto) 0.9 K/mm3 (1.2-5.4) L 10/14/20 05:37 [place] # (Auto) 0.5 K/mm3 (0.0-0.8) 10/14/20 05:37 Eos # (Auto) 0.0 K/mm3 (0.0-0.4) 10/14/20 05:37 Baso # (Auto) 0.0 K/mm3 (0.0-0.1) 10/14/20 05:37 Add Manual Diff Complete 10/13/20 19:39 Total Counted 100 10/13/20 19:39 Seg Neutrophils % 83.5 % (40.0-70.0) H 10/14/20 05:37 Seg Neuts % (Manual) 92.0 % (40.0-70.0) H 10/13/20 19:39 Lymphocytes % (Manual) 6.0 % (13.4-35.0) L 10/13/20 19:39 Monocytes % (Manual) 2.0 % (0.0-7.3) 10/13/20 19:39 Nucleated RBC % Not Reportable 10/13/20 19:39 Seg Neutrophils # 7.1 K/mm3 (1.8-7.7) 10/14/20 05:37 Seg Neutrophils # Man 9.9 K/mm3 (1.8-7.7) H 10/13/20 19:39 Band Neutrophils # 0.0 K/mm3 10/13/20 19:39 Lymphocytes # (Manual) 0.6 K/mm3 (1.2-5.4) L 10/13/20 19:39 Abs React Lymphs (Man) 0.0 K/mm3 10/13/20 19:39 Monocytes # (Manual) 0.2 K/mm3 (0.0-0.8) 10/13/20 19:39 Eosinophils # (Manual) 0.0 K/mm3 (0.0-0.4) 10/13/20 19:39 Basophils # (Manual) 0.0 K/mm3 (0.0-0.1) 10/13/20 19:39 Metamyelocytes # 0.0 K/mm3 10/13/20 19:39 Myelocytes # 0.0 K/mm3 10/13/20 19:39 Promyelocytes # 0.0 K/mm3 10/13/20 19:39 Blast Cells # 0.0 K/mm3 10/13/20 19:39 WBC Morphology Not Reportable 10/13/20 19:39 Hypersegmented Neuts Not Reportable 10/13/20 19:39 Hyposegmented Neuts Not Reportable 10/13/20 19:39 Hypogranular Neuts Not Reportable 10/13/20 19:39 Smudge Cells Not Reportable 10/13/20 19:39 Toxic Granulation Not Reportable 10/13/20 19:39 Toxic Vacuolation Not Reportable 10/13/20 19:39 Dohle Bodies Not Reportable 10/13/20 19:39 Pelger-Huet Anomaly Not Reportable 10/13/20 19:39 Teri Rods Not Reportable 10/13/20 19:39 Platelet Estimate Not Reportable 10/13/20 19:39 Clumped Platelets Not Reportable 10/13/20 19:39 Plt Clumps, EDTA Not Reportable 10/13/20 19:39 Large Platelets Not Reportable 10/13/20 19:39 Giant Platelets Not Reportable 10/13/20 19:39 Platelet Satelliting Not Reportable 10/13/20 19:39 Plt Morphology Comment Not Reportable 10/13/20 19:39 RBC Morphology Normal 10/13/20 19:39 Dimorphic RBCs Not Reportable 10/13/20 19:39 Polychromasia Not Reportable 10/13/20 19:39 Hypochromasia Not Reportable 10/13/20 19:39 Poikilocytosis Not Reportable 10/13/20 19:39 Anisocytosis Not Reportable 10/13/20 19:39 Microcytosis Not Reportable 10/13/20 19:39 Macrocytosis Not Reportable 10/13/20 19:39 Spherocytes Not Reportable 10/13/20 19:39 Pappenheimer Bodies Not Reportable 10/13/20 19:39 Sickle Cells Not Reportable 10/13/20 19:39 Target Cells Not Reportable 10/13/20 19:39 Tear Drop Cells Not Reportable 10/13/20 19:39 Ovalocytes Not Reportable 10/13/20 19:39 Helmet Cells Not Reportable 10/13/20 19:39 Castro-Springer Bodies Not Reportable 10/13/20 19:39 [place] Rings Not Reportable 10/13/20 19:39 Alina Cells Not Reportable 10/13/20 19:39 Bite Cells Not Reportable 10/13/20 19:39 Crenated Cell Not Reportable 10/13/20 19:39 Elliptocytes Not Reportable 10/13/20 19:39 Acanthocytes (Spur) Not Reportable 10/13/20 19:39 Rouleaux Not Reportable 10/13/20 19:39 Hemoglobin C Crystals Not Reportable 10/13/20 19:39 Schistocytes Not Reportable 10/13/20 19:39 Malaria parasites Not Reportable 10/13/20 19:39 Erik Bodies Not Reportable 10/13/20 19:39 Hem Pathologist Commnt No 10/13/20 19:39 Sodium 138 mmol/L (137-145) 10/14/20 05:37 Potassium 4.0 mmol/L (3.6-5.0) 10/14/20 05:37 Chloride 101.4 mmol/L (98-107) 10/14/20 05:37 Carbon Dioxide 29 mmol/L (22-30) 10/14/20 05:37 Anion Gap 12 mmol/L 10/14/20 05:37 BUN 8 mg/dL (9-20) L 10/14/20 05:37 Creatinine 0.7 mg/dL (0.8-1.3) L 10/14/20 05:37 Estimated GFR > 60 ml/min 10/14/20 05:37 BUN/Creatinine Ratio 11 % 10/14/20 05:37 Glucose 112 mg/dL (75-100) H 10/14/20 05:37 Calcium 8.7 mg/dL (8.4-10.2) 10/14/20 05:37 Total Bilirubin 1.30 mg/dL (0.1-1.2) H 10/13/20 19:39 AST 18 units/L (5-40) 10/13/20 19:39 ALT 15 units/L (7-56) 10/13/20 19:39 Alkaline Phosphatase 66 units/L (35-129) 10/13/20 19:39 Total Protein 6.8 g/dL (6.3-8.2) 10/13/20 19:39 Albumin 3.4 g/dL (3.9-5) L 10/13/20 19:39 Albumin/Globulin Ratio 1.0 % 10/13/20 19:39 Lipase 22 units/L (13-60) 10/12/20 21:41 Urine Color Yellow (Yellow) 10/12/20 Unknown Urine Turbidity Clear (Clear) 10/12/20 Unknown Urine pH 7.0 (5.0-7.0) 10/12/20 Unknown Ur Specific [place] 1.036 (1.003-1.030) H 10/12/20 Unknown Urine Protein <15 mg/dl mg/dL (Negative) 10/12/20 Unknown Urine Glucose (UA) Neg mg/dL (Negative) 10/12/20 Unknown Urine Ketones 80 mg/dL (Negative) 10/12/20 Unknown Urine Blood Neg (Negative) 10/12/20 Unknown Urine Nitrite Neg (Negative) 10/12/20 Unknown Urine Bilirubin Neg (Negative) 10/12/20 Unknown Urine Urobilinogen 2.0 mg/dL (<2.0) 10/12/20 Unknown Ur Leukocyte Esterase Neg (Negative) 10/12/20 Unknown Urine WBC (Auto) 1.0 /HPF (0.0-6.0) 10/12/20 Unknown Urine RBC (Auto) 4.0 /HPF (0.0-6.0) 10/12/20 Unknown Urine Mucus Few /HPF 10/12/20 Unknown Ambrocio/IV: Voiding Method Urinal Active Medications - Current Medications Current Medications: Generic Name Dose Route Start Last Admin Trade Name Freq PRN Reason Stop Dose Admin Acetaminophen 650 mg 10/13/20 00:41 Acetaminophen 325 Mg Tab PO Q4H PRN Pain MILD(1-3)/Fever >100.5/LEGGETT Albuterol 2.5 mg 10/13/20 00:41 Albuterol 2.5 Mg/3 Ml Nebu IH Q3HRT PRN Shortness Of Breath Famotidine 20 mg 10/13/20 10:00 10/13/20 21:51 Famotidine 20 Mg/2 Ml Inj IV 20 mg BID MADI Administration Heparin Sodium (Porcine) 5,000 unit 10/13/20 06:00 10/14/20 05:22 Heparin 5,000 Unit/1 Ml Vial SUB-Q 5,000 unit Q8HR MADI Administration Hydralazine HCl 10 mg 10/13/20 00:42 Hydralazine 20 Mg/1 Ml Inj IV Q6H PRN htn Dextrose/Sodium Chloride 1,000 mls @ 100 mls/hr 10/13/20 01:00 10/14/20 05:22 D5/0.45ns IV 100 mls/hr DIRECT MADI Administration Piperacillin Sod/Tazobactam Sod 4.5 gm in 100 mls @ 200 mls/hr 10/13/20 08:00 10/13/20 23:51 Zosyn/Ns 4.5gm/100ml IV 200 mls/hr Q8H MADI Administration Protocol Lactated Ringer's 1,000 mls @ 100 mls/hr 10/13/20 12:30 10/13/20 12:55 Lactated Ringers IV 10/14/20 12:29 100 mls/hr DIRECT MADI Administration Morphine Sulfate 2 mg 10/13/20 00:41 10/13/20 21:52 Morphine 2 Mg/1 Ml Inj IV 2 mg Q4H PRN Administration Pain, Moderate (4-6) Ondansetron HCl 4 mg 10/13/20 00:41 10/13/20 17:28 Ondansetron 4 Mg/2 Ml Inj IV 4 mg Q8H PRN Administration Nausea And Vomiting Sodium Chloride 10 ml 10/13/20 10:00 10/13/20 21:57 Sodium Chloride 0.9% 10 Ml Flush Syringe IV 10 ml BID MADI Administration Sodium Chloride 10 ml 10/13/20 00:41 10/13/20 02:35 Sodium Chloride 0.9% 10 Ml Flush Syringe IV 10 ml PRN PRN Administration LINE FLUSH Nutrition/Malnutrition Assess - Dietary Evaluation Nutrition/Malnutrition Findings: Nutrition Notes Start: 10/13/20 12:02 Freq: Status: Active Protocol: Document 10/13/20 12:03 AL (Rec: 10/13/20 12:14 AL [id number]) Co-Sign 10/13/20 12:03 LP Nutrition Notes Need for Assessment generated from: rn rehabilitation Initial or Follow up Assessment Other Pertinent Diagnosis Cecum mass, acute appendicitis , leukocytosis Current Diet NPO Labs/Tests Cr 0.7 Pertinent Medications D5/0.45 NS 100 ml/hr Height 5 ft 10 in Weight 70.307 kg [place] Body Weight (kg) 75.45 BMI 22.2 Intake Prior to Admission Good Weight change and time frame wt gain of 10 lbs (4.54 kg) over 2 1/2 years. Weight Status Appropriate Subjective/Other Information human resources vice president for [employer] 3. permit technician was used to speak to pt. Pt reports no appetite or weight loss. Pt states current appetite is stable and that he feels hungry and ready for diet advancement. Burn Absent Trauma Absent Current % PO Negligible Minimum of two criteria No physical signs of malnutrition #1 Nutrition Diagnosis Inadequate oral intake Etiology appendicitis, cecum mass As Evidenced by Signs and Symptoms Pt NPO Is patient on ventilator? No Is Patient Ambulatory and/or Out of Bed Yes REE-([place]-St. Jeor-ambulatory/OOB) [ [id number] [id number]] Calculation Used for Recommendations [place] or Additional Notes Protein: 56-70 g (0.8-1 g/kg) Fluid: 1 ml/kcal Nutrition Intervention Change Diet Order: Advance diet when medically feasible. Goal #1 Diet advancement to meet nutrient needs Follow-Up By: 10/16/20 Additional Comments F/U for diet advancement, intakes.
--- NOTE | 2020-10-14 09:49 | Progress Note ---
Assessment and Plan - Patient Problems (1) Mucocele of appendix Current Visit: Yes Status: Acute Plan to address problem: 1) Pt can be discharged from my perspective. 2) F/u in office in 2 weeks 3) No lifting or straining 4) May shower in 48 hours 5) Regular diet 6) Rx - Narcotic of choice + Cipro, 500 mg po bid X 7 days Subjective Date of service: 10/14/20 Patient Reports: Positive: no new complaints, feels better, pain is less, tolerating liquids well Objective Vital Signs - 12hr 10/13/20 10/14/20 22:00 04:18 Temperature 99.2 F 98.5 F Pulse Rate 60 49 L Respiratory 18 18 Rate Blood Pressure 105/61 113/56 O2 Sat by Pulse 98 100 Oximetry - Abdomen soft, bowel sounds normal (NT) - Labs 10/14/20 05:37 10/14/20 05:37 Diabetes panel 10/13/20 10/14/20 Range/Units 19:39 05:37 Sodium 136 L 138 (137-145) mmol/L Potassium 4.3 4.0 (3.6-5.0) mmol/L Chloride 101.5 101.4 (98-107) mmol/L Carbon Dioxide 27 29 (22-30) mmol/L BUN 10 8 L (9-20) mg/dL Creatinine 1.0 0.7 L (0.8-1.3) mg/dL Glucose 170 H 112 H (75-100) mg/dL Calcium 8.4 8.7 (8.4-10.2) mg/dL AST 18 (5-40) units/L ALT 15 (7-56) units/L Alkaline Phosphatase 66 (35-129) units/L Total Protein 6.8 (6.3-8.2) g/dL Albumin 3.4 L (3.9-5) g/dL Calcium panel 10/13/20 10/14/20 Range/Units 19:39 05:37 Calcium 8.4 8.7 (8.4-10.2) mg/dL Albumin 3.4 L (3.9-5) g/dL Pituitary panel 10/13/20 10/14/20 Range/Units 19:39 05:37 Sodium 136 L 138 (137-145) mmol/L Potassium 4.3 4.0 (3.6-5.0) mmol/L Chloride 101.5 101.4 (98-107) mmol/L Carbon Dioxide 27 29 (22-30) mmol/L BUN 10 8 L (9-20) mg/dL Creatinine 1.0 0.7 L (0.8-1.3) mg/dL Glucose 170 H 112 H (75-100) mg/dL Calcium 8.4 8.7 (8.4-10.2) mg/dL Adrenal panel 10/13/20 10/14/20 Range/Units 19:39 05:37 Sodium 136 L 138 (137-145) mmol/L Potassium 4.3 4.0 (3.6-5.0) mmol/L Chloride 101.5 101.4 (98-107) mmol/L Carbon Dioxide 27 29 (22-30) mmol/L BUN 10 8 L (9-20) mg/dL Creatinine 1.0 0.7 L (0.8-1.3) mg/dL Glucose 170 H 112 H (75-100) mg/dL Calcium 8.4 8.7 (8.4-10.2) mg/dL Total Bilirubin 1.30 H (0.1-1.2) mg/dL AST 18 (5-40) units/L ALT 15 (7-56) units/L Alkaline Phosphatase 66 (35-129) units/L Total Protein 6.8 (6.3-8.2) g/dL Albumin 3.4 L (3.9-5) g/dL
[2020-10-14] MEDS: FAMOTIDINE 20 MG/2 ML INJ IV SCH (09:54)
--- NOTE | 2020-10-14 12:19 | Discharge Summary ---
Providers - Providers Date of Admission: 10/13/20 11:52 Date of discharge: 10/14/20 Attending physician: WENDY GE 10/13/20 00:01 Consult to Physician [CONS] Stat Comment: Dr. Mcclain spoke with Dr. 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 I concerned that there is a mass in the cecum at the appendiceal junction and this could be a mucocele of the appendix related to the obstructive change from a mass lesion I favor this over acute appendicitis and see no inflammation change in the area. No evidence of bowel obstruction is noted no perforation or abscess is seen Procedures: S/P laparoscopic cecectomy. 10/13/2020 Hospital course: 39-year-old male patient with no significant past medical history was admitted through emergency room with right lower quadrant abdominal pain for the last 1 day, patient was initially evaluated in the ED, CT abdomen and pelvis is consistent with cecal mass/appendiceal mucocele/acute appendicitis Patient was placed n.p.o. and antibiotics, subsequently evaluated by surgeon, patient underwent laparoscopic cecectomy on 10/13/2020. Patient had unco mplicated postop phase, Slowly started clear liquid diet advanced as tolerated And today patient is comfortable no new complaints vital signs stable physical examination is unremarkable prior to discharge Surgeon has cleared the patient for discharge and follow-up per schedule Patient is hemodynamically and clinically stable at discharge -- Acute appendicitis/mucocele of the appendix Status: Acute , Plan to address problem: S/P laparoscopic cecectomy. 10/13/2020 Patient tolerated the procedure well, continue postop care Continue n.p.o. status, IV fluids and pain medications Surgery following Increase ambulation as tolerated -- Cecum mass[on CT scan] Status: Acute Plan to address problem: S/P laparoscopic cecectomy. 10/13/2020 Continue postop care per surgery -- Leukocytosis Status: Acute Plan to address problem: Resolved ,Zosyn 4.5 g IV every 8 hours. Follow blood cultures Disposition: TO HOME OR SELFCARE Final Discharge Diagnosis (Prints w/discharge instructions): Acute appendicitis. Mucocele of the appendix. Cecal mass on CT. s/p cecectomy. Leukocytosis Time spent for discharge: 35 min Core Measure Documentation - Palliative Care Palliative Care/ Comfort Measures: Not Applicable - Core Measures Any of the following diagnoses?: none Exam - Constitutional Vitals: Temp Pulse Resp BP Pulse Ox 98.5 F 49 L 18 113/56 100 10/14/20 04:18 10/14/20 04:18 10/14/20 04:18 10/14/20 04:18 10/14/20 04:18 General appearance: Present: no acute distress, well-nourished - EENT Eyes: Present: PERRL, EOM intact - Neck Neck: Present: supple, normal ROM - Respiratory Respiratory effort: normal Respiratory: bilateral: diminished, negative: rales, rhonchi, wheezing - Cardiovascular Rhythm: regular Heart Sounds: Present: S1 & S2 - Extremities Extremities: no ischemia, No edema - Abdominal General gastrointestinal: Present: soft, non-tender, non-distended, normal bowel sounds - Integumentary Integumentary: Present: clear, warm - Musculoskeletal Musculoskeletal: strength equal bilaterally, generalized weakness - Psychiatric Psychiatric: appropriate mood/affect, cooperative - Neurologic Neurologic: CNII-XII intact, moves all extremities Plan Activity: advance as tolerated, other (No lifting weights or straining for 4 weeks) Diet: regular Additional Instructions: Discharge instructions. f/u Dr. Villa in office in 2 weeks. No lifting or straining. May shower in 48 hours. Regular diet. If you have worsening symptoms contact MD or go to emergency room as needed Follow up with: PRIMARY MD JACKELYN [Primary Care Provider] - 7 Days ROSS VILLA MD [Staff Physician] - 14 Days Prescriptions: Ciprofloxacin HCl 500 mg PO BID #14 tablet oxyCODONE /ACETAMINOPHEN [Percocet 5/325] 1 tab PO Q8H PRN #15 tablet PRN Reason: Pain Pantoprazole [Protonix TAB] 20 mg PO QDAY #14 tablet.
[2020-10-14 12:59] VITALS: BP 96/45
== END 2020-10-14 16:25 | disposition home or self-care (01) | DRG 331 ==
LOC: ED 21:01 → 3A 23:58 → OBSVTOIN 10-13 11:52
PROVIDERS: ADMIT Hospitalist; ATTEND Internal Medicine
PROC: 0DBH4ZZ Excision of Cecum, Percutaneous Endoscopic Approach (ICD-10-PCS; principal; 2020-10-13)
DX: K35.80 Unspecified acute appendicitis (principal); R19.09 Other intra-abdominal and pelvic swelling, mass and lump; D72.829 Elevated white blood cell count, unspecified; K38.8 Other specified diseases of appendix; Z87.891 Personal history of nicotine dependence
CPT/HCPCS: 36415; 74177; 80048; 80053; 81001; 83690; 85007; 85025; 87116; 88304; 96365; 96375; G0378; J0330; J1100; J1170; J1644; J2250; J2270; J2405; J2543; J2704; J2710; J3010; J7030; J7120; Q9967